=== PATIENT | female | born 2000 | race Two or more races ===

== ENCOUNTER 2024-05-06 19:02 | Emergency (ER) | payer OTHER ==
[~2024-05-06] VITALS: Ht 157.5 cm; Wt 59.0 kg
[2024-05-06] MEDS ORDERED: PRENA1 TRUE CO1 EACH (19:09)
[2024-05-06] MEDS ORDERED: METOCLOPRAMIDE HCL 10 MG in DEXTROSE 5 % IN WATER 50 ML IV ONE (20:30)
[2024-05-06] MEDS ORDERED: FAMOTIDINE/PF 20 MG/2 ML VIAL IV PUSH ONE (20:30)
[2024-05-06] MEDS ORDERED: 0.9 % SODIUM CHLORIDE 1,000 ML IV SCH (20:30)
[2024-05-06] MEDS ORDERED: FAMOTIDINE/PF 20 MG/2 ML VIAL ONE (20:45)
[2024-05-06] MEDS ORDERED: METOCLOPRAMIDE HCL 5 MG/ML VIAL ONE (20:45)
[2024-05-06 20:49] LABS: HEMATOCRIT 36.1 % (36.0-45.00); HEMOGLOBIN 12.6 g/dL (12.0-15.00); MEAN CELL VOLUME 89.3 fL (80.00-100.00); MEAN CORPUSCULAR HEMOGLOBIN 31.2 pg (27.00-32.0); PLATELET COUNT 258 K/uL (150-450); RED BLOOD COUNT 4.05 M/uL (4.00-6.00); RED CELL DISTRIBUTION WIDTH 12.4 % (11.5-14.5)
[2024-05-06 20:57] LABS: PH,URINE 5.5 (5.0-8.0); URINE APPEARANCE Clear; URINE BILIRRUBIN Negative (NEGATIVE); URINE BLOOD Negative; URINE COLOR Yellow; URINE GLUCOSE Negative (NEGATIVE); URINE LEUKOCYTE Small; URINE NITRATE Negative; URINE PROTEIN Trace (NEGATIVE)
[2024-05-06 21:01] LABS: URINE BACTERIA 7199.2 uL (0.0-1933); URINE RBC 15.8 uL (0.0-20.8)
[2024-05-06 21:31] LABS: CREATININE SERUM 0.37 mg/dL (0.55-1.02); GFR 216.42; POTASSIUM 3.71 mEq/L (3.5-5.1)
[2024-05-06 21:40] LABS: URINE CAST 0.91 uL (0.0-1.40); URINE KETONE >=160 (NEGATIVE)
== END 2024-05-07 00:21 | disposition home or self-care (01) ==
LOC: ER 19:03
PROVIDERS: Emergency Medicine
DX: O21.0 Mild hyperemesis gravidarum (principal); O23.41 Unspecified infection of urinary tract in pregnancy, first trimester; N39.0 Urinary tract infection, site not specified; O99.611 Diseases of the digestive system complicating pregnancy, first trimester; K29.70 Gastritis, unspecified, without bleeding; Z3A.11 11 weeks gestation of pregnancy; Z88.8 Allergy status to other drugs, medicaments and biological substances; Z91.013 Allergy to seafood

== ENCOUNTER 2024-06-01 13:30 | Outpatient (CLI) | payer OTHER ==
[~2024-06-01 13:30] MED LIST: PRENA1 TRUE CO1 EACH
== END 2024-06-01 13:31 | disposition home or self-care (01) ==
LOC: PRENATAL 13:30
PROVIDERS: ATTEND Obstetrics & Gynecology Maternal & Fetal Medicine
DX: O36.80X0 Pregnancy with inconclusive fetal viability, not applicable or unspecified (principal); Z36.82 Encounter for antenatal screening for nuchal translucency; Z36.9 Encounter for antenatal screening, unspecified; Z3A.14 14 weeks gestation of pregnancy

== ENCOUNTER 2024-09-29 16:15 | Outpatient (CLI) | payer OTHER ==
[2024-09-29 16:42] VITALS: BP 107/73
[2024-09-29 17:15] LABS: HEMATOCRIT 35.9 % (36.0-45.00); HEMOGLOBIN 11.8 g/dL (12.0-15.00); MEAN CELL VOLUME 84.7 fL (80.00-100.00); MEAN CORPUSCULAR HEMOGLOBIN 27.8 pg (27.00-32.0); MEAN CORPUSCULAR HGB CONC 32.9 g/dl (32.0-36.0); PLATELET COUNT 249 K/uL (150-450); RED BLOOD COUNT 4.24 M/uL (4.00-6.00)
[2024-09-29] MEDS ORDERED: BETAMETHASONE ACETATE,SOD PHOS 30 MG/5 ML ML ONE (17:18)
[2024-09-29 17:19] LABS: RED CELL DISTRIBUTION WIDTH 17.7 % (11.5-14.5)
[2024-09-29 17:24] LABS: PH,URINE 5.5 (5.0-8.0); URINE APPEARANCE Clear; URINE BILIRRUBIN Negative (NEGATIVE); URINE BLOOD Large; URINE COLOR Yellow; URINE GLUCOSE Negative (NEGATIVE); URINE LEUKOCYTE Negative; URINE NITRATE Negative; URINE PROTEIN Trace (NEGATIVE)
[2024-09-29 17:27] LABS: URINE BACTERIA 299.8 uL (0.0-1933); URINE EPITHELIAL CELLS 9.9 uL (0.0-38.8); URINE RBC 1211.1 uL (0.0-20.8); URINE WBC 12.9 uL (0.0-23.2)
[2024-09-29 17:39] LABS: INR 0.97; PARTIAL THROMBOPLASTIN TIME 27.3 SECONDS (22.0-34.0); PROTHROMBIN TIME 10.6 SECONDS (9.0-11.5)
[2024-09-29] MEDS ORDERED: RINGERS SOLUTION,LACTATED 1,000 ML IV SCH (17:45)
[2024-09-29] MEDS ORDERED: BETAMETHASONE ACETATE,SOD PHOS 30 MG/5 ML ML IM SCH (17:45)
[2024-09-29 17:47] LABS: URINE CAST 0.29 uL (0.0-1.40); URINE KETONE >=160 (NEGATIVE)
[2024-09-29] MEDS ORDERED: ZOFRAN8 MG PO (17:48)
[2024-09-29] MEDS ORDERED: IRON325 MG PO (17:48)
[2024-09-29 17:49] LABS: BILIRUBIN TOTAL 0.28 mg/dL (0.3-1.2); CALCIUM 9.4 mg/dL (8.5-10.1); CREATININE SERUM 0.47 mg/dL (0.55-1.02); GFR 164.21; GLOBULINA 3.8 G/DL (2.4-3.5); POTASSIUM 3.42 mEq/L (3.5-5.1); TOTAL PROTEIN 6.8 gm/dL (6.4-8.2)
[2024-09-29] MEDS ORDERED: AMPICILLIN SODIUM 2,000 MG VIAL IV STA (18:22)
[2024-09-29] MEDS ORDERED: NIFEDIPINE 20 MG CAPSULE PO STA (18:23)
[2024-09-29 19:30] VITALS: BP 108/71; O2SAT 96
[2024-09-29] MEDS ORDERED: DIPHENHYDRAMINE HCL 50 MG/ML VIAL 1ML ONE (19:35)
[2024-09-29] MEDS ORDERED: DIPHENHYDRAMINE HCL 50 MG/ML VIAL 1ML IV STA (19:48)
[2024-09-29] MEDS ORDERED: DIPHENHYDRAMINE HCL 50 MG/ML VIAL 1ML IM STA (19:56)
[2024-09-29 23:19] VITALS: BP 98/61
[2024-09-30] MEDS ORDERED: NIFEDIPINE 10 MG CAPSULE PO SCH
[2024-09-30] MEDS ORDERED: AMPICILLIN SODIUM 1,000 MG VIAL IV SCH
[2024-09-30 03:06] VITALS: BP 96/57
[2024-09-30 07:09] VITALS: BP 101/64
[2024-09-30 12:14] VITALS: BP 112/73
[2024-09-30 15:27] VITALS: BP 109/71
[2024-09-30] MEDS ORDERED: BETAMETHASONE ACETATE,SOD PHOS 30 MG/5 ML ML ONE (17:19)
[2024-09-30] MEDS ORDERED: BETAMETHASONE ACETATE,SOD PHOS 30 MG/5 ML ML IM NR (17:25)
== END 2024-09-30 18:00 | disposition home or self-care (01) ==
LOC: OBS/DEL 16:15
PROVIDERS: ATTEND Student in an Organized Health Care Education/Training Program
DX: O26.893 Other specified pregnancy related conditions, third trimester (principal); O26.849 Uterine size-date discrepancy, unspecified trimester; O36.8199 Decreased fetal movements, unspecified trimester, other fetus; O60.00 Preterm labor without delivery, unspecified trimester; Z3A.34 34 weeks gestation of pregnancy

== ENCOUNTER 2024-11-09 10:30 | Inpatient (IN) | payer OTHER ==
[~2024-11-09] VITALS: Ht 157.5 cm; Wt 3.6 kg
[~2024-11-09 10:30] MED LIST changes: +IRON325 MG PO; +ZOFRAN8 MG PO
[2024-11-09 11:11] VITALS: BP 118/80
[2024-11-09 11:19] VITALS: BP 118/80
[2024-11-09] MEDS ORDERED: CEFAZOLIN SODIUM 1,000 MG VIAL IV SCH (11:45)
[2024-11-09] MEDS ORDERED: RINGERS SOLUTION,LACTATED 1,000 ML IV SCH (11:45)
[2024-11-09 12:27] LABS: URINE APPEARANCE Cloudy; URINE BILIRRUBIN Negative (NEGATIVE); URINE BLOOD Negative; URINE COLOR Yellow; URINE GLUCOSE Negative (NEGATIVE); URINE KETONE Negative (NEGATIVE); URINE LEUKOCYTE Large; URINE NITRATE Negative; URINE PROTEIN Negative (NEGATIVE); URINE UROBILINOGEN 0.2 E.U./dl
[2024-11-09 12:30] LABS: URINE EPITHELIAL CELLS 22.1 uL (0.0-38.8); URINE RBC 5.3 uL (0.0-20.8); URINE WBC 427.9 uL (0.0-23.2)
[2024-11-09 12:35] LABS: HEMATOCRIT 35.3 % (36.0-45.00); HEMOGLOBIN 11.6 g/dL (12.0-15.00); MEAN CORPUSCULAR HGB CONC 32.9 g/dl (32.0-36.0); PLATELET COUNT 188 K/uL (150-450); RED CELL DISTRIBUTION WIDTH 19.5 % (11.5-14.5)
[2024-11-09 12:46] LABS: URINE CAST 0.44 uL (0.0-1.40)
[2024-11-09 12:59] LABS: ALBUMIN 2.5 gm/dL (3.4-5.0); BILIRUBIN TOTAL 0.33 mg/dL (0.3-1.2); CALCIUM 9.2 mg/dL (8.5-10.1); CREATININE SERUM 0.42 mg/dL (0.55-1.02); GFR 185.36; GLOBULINA 3.5 G/DL (2.4-3.5); POTASSIUM 3.48 mEq/L (3.5-5.1)
[2024-11-09 13:09] LABS: INR 0.98; PARTIAL THROMBOPLASTIN TIME 28.1 SECONDS (22.0-34.0); PROTHROMBIN TIME 10.7 SECONDS (9.0-11.5)
[2024-11-09] MEDS ORDERED: OXYTOCIN 10 UNITS/ML VIAL ONE ×2 (13:30→19:08)
[2024-11-09] MEDS ORDERED: ERYTHROMYCIN BASE OPHT 1GM EACH TUBE OP ONE (13:30)
[2024-11-09] MEDS ORDERED: MORPHINE SULFATE 4 MG/ML CARTRIDGE IV PRN (15:15)
[2024-11-09] MEDS ORDERED: PROMETHAZINE HCL 25 MG/ML AMPUL IV PRN (15:15)
[2024-11-09] MEDS ORDERED: OXYTOCIN 1,000 ML IV SCH (15:15)
[2024-11-09] MEDS ORDERED: MORPHINE SULFATE 4 MG/ML VIAL IV ONE (16:00)
[2024-11-09 19:40] VITALS: BP 119/78
[2024-11-09 20:28] LABS: HEMOGLOBIN 11.2 g/dL (12.0-15.00); MEAN CORPUSCULAR HGB CONC 32.9 g/dl (32.0-36.0); PLATELET COUNT 186 K/uL (150-450); RED BLOOD COUNT 4.14 M/uL (4.00-6.00); RED CELL DISTRIBUTION WIDTH 18.7 % (11.5-14.5)
[2024-11-10 00:10] VITALS: BP 128/79
[2024-11-10 07:00] VITALS: BP 121/77
[2024-11-10] MEDS ORDERED: ACETAMINOPHEN WITH CODEINE 1 UDTAB TABLET PO PRN (07:00)
[2024-11-10] MEDS ORDERED: TRAMADOL HCL 50 MG TABLET PO PRN (07:00)
[2024-11-10] MEDS ORDERED: SIMETHICONE 125 MG CAPSULE PO SCH (09:00)
[2024-11-10] MEDS ORDERED: DOCUSATE SODIUM 100MG CAP PO SCH (09:00)
[2024-11-10 15:00] VITALS: BP 108/72
[2024-11-11 02:40] VITALS: BP 128/64
[2024-11-11] MEDS ORDERED: MAGNESIUM HYDROXIDE 30 ML BLIST.PACK PO ONE (04:00)
[2024-11-11] MEDS ORDERED: MINERAL OIL 30 ML BLIST.PACK PO ONE (04:00)
[2024-11-11] MEDS ORDERED: TRAMADOL HCL 50 MG TABLET PO SCH (08:00)
[2024-11-11 08:15] VITALS: BP 131/80
[2024-11-11] MEDS ORDERED: ACETAMINOPHEN 500 MG GEL..CAP PO SCH ×2 (09:00→14:00)
[2024-11-11 16:00] VITALS: BP 117/72
[2024-11-12 00:21] VITALS: BP 117/78
[2024-11-12 08:04] VITALS: BP 123/85
== END 2024-11-12 14:21 | disposition home or self-care (01) | DRG 788 ==
LOC: LDR 10:30 → O/R 10:30 → OB/GYN 15:54
PROVIDERS: ADMIT Student in an Organized Health Care Education/Training Program; ATTEND Student in an Organized Health Care Education/Training Program
PROC: 4A1HXCZ Monitoring of Products of Conception, Cardiac Rate, External Approach (ICD-10-PCS; 2024-11-09)
PROC: 10D00Z1 Extraction of Products of Conception, Low, Open Approach (ICD-10-PCS; principal; 2024-11-09 15:00)
DX: O41.03X0 Oligohydramnios, third trimester, not applicable or unspecified (principal); O82 Encounter for cesarean delivery without indication; Z3A.37 37 weeks gestation of pregnancy; Z37.0 Single live birth